=== PATIENT | female | born 1985 | race Caucasian/White ===

== ENCOUNTER 2016-11-12 20:34 | Emergency (ER) | payer SELFPAY ==
[~2016-11-12] VITALS: Ht 160 cm; Wt 49.9 kg
--- NOTE | 2016-11-12 20:46 | NUR ---
Placed in room H1 . Placed on lunchroom monitor, blood pressure machine and pulse oximeter. To gown for exam. Side rails up. Report given to GUY Doan.
[2016-11-12 20:47] VITALS: BP 117/82; PULSE 56; RESP 18; TEMP 97.2; O2SAT 99
--- NOTE | 2016-11-12 21:05 | NUR ---
PT MOVED TO BED 1, REPORT TO GUY ALBA
--- NOTE | 2016-11-12 21:06 | NUR ---
Pt presents to ED with c/o throbbing headache at bilateral side of the head, radiated to both side of neck , 8/10, intermittenly. A&Ox4, Denies headache, denies dizziness, denies N/V/D, denies SOB or chestpain. Ambulatory, gait stable. Will continue to monitor
--- NOTE | 2016-11-12 21:34 | NUR ---
at bedside examining pt
--- NOTE | 2016-11-12 21:59 | NUR ---
Pt in bed, stated her headache is currently subsided. Will continue to monitor
[2016-11-12] MEDS ORDERED: DIPHENHYDRAMINE HCL 25 MG CAPSULE PO ONE (22:30)
[2016-11-12] MEDS ORDERED: IBUPROFEN 600 MG TABLET PO ONE (22:30)
--- NOTE | 2016-11-12 22:35 | NUR ---
Pt refused to have IV access, stated she wants to take PO medication prior to considering IV
--- NOTE | 2016-11-12 23:35 | NUR ---
Pt in bed, stated her headache comes and goes. Pain is tolerable right now
[2016-11-13] MEDS ORDERED: DIPHENHYDRAMINE HCL 25 MG CAPSULE PO ONE
[2016-11-13 00:05] VITALS: BP 112/76; PULSE 62; RESP 17; TEMP 97.2; O2SAT 99
--- NOTE | 2016-11-13 00:05 | NUR ---
Patient given written and verbal discharge instructions and verbalizes understanding. ER MD White discussed with patient the results and treatment provided. Patient in stable condition. ID arm band removed. Rx of benadryl given. Patient educated on pain management and to follow up with PMD. Pain Scale 0/10 Opportunity for questions provided and answered.
== END 2016-11-13 00:05 | disposition home or self-care (01) ==
LOC: SED 20:34
DX: M62.838 Other muscle spasm (principal); F31.9 Bipolar disorder, unspecified; M54.2 Cervicalgia; R68.84 Jaw pain; J45.909 Unspecified asthma, uncomplicated
CPT/HCPCS: 99284; Q0163 ×2; 99283